=== PATIENT | female | born 1975 | race Caucasian/White ===

== ENCOUNTER 2017-09-11 13:22 | Emergency (ER) | payer OTHER ==
[~2017-09-11 13:22] MED LIST: Sodium Chloride 0.9% 100 ML BAG ONE
[2017-09-11 13:47] LABS: INR-International Normal Ratio 1.1; Prothrombin Time 14.8 SEC (12.0-14.7)
[2017-09-11 13:54] LABS: Bilirubin Negative (Negative); Blood, Urine Large (Negative); Clarity Hazy (Clear); Glucose, Urine (Dipstick) Negative (Negative); Leukocyte Negative (Negative); Nitrite Negative (Negative); Protein, Urine (Dipstick) 30 mg/dL (Neg-Trace); Urobilinogen 0.2 mg/dL (0.2-1.0)
[2017-09-11 13:58] LABS: ALT (SGPT) 16 U/L (8-55); AST (SGOT) 26 U/L (5-34); Albumin 3.1 g/dL (3.5-5.0); Anion Gap 16 mmol/L (10-20); BUN (Urea Nitrogen) 11 mg/dL (7.0-18.7); Bilirubin, Total 0.3 mg/dL (0.2-1.2); Calc. Creatinine Clearance 0 mL/min (70-130); Calcium 9.7 mg/dL (7.8-10.44); Carbon Dioxide 22 mmol/L (22-29); Chloride 97 mmol/L (98-107); Estimated GFR-MDRD Greater than 90; Globulin 4.9 g/dL (2.4-3.5); Glucose 91 mg/dL (70-105); Potassium 3.8 mmol/L (3.5-5.1); Sodium 131 mmol/L (136-145)
[2017-09-11 13:59] LABS: Band 2 % (5-11); Hemoglobin 9.6 g/dL (12.0-16.0); Lymphocytes 20 % (21-51); MDiff Complete? YES; Mean Corpuscular HGB CONC 33.5 g/dL (32.0-36.0); Mean Corpuscular Hemoglobin 28.4 pg (27.0-31.0); Mean Corpuscular Volume 84.9 fl (81.0-99.0); Mean Platelet Volume 11.4 fL (7.4-10.4); Monocytes 9 % (0-10); Neutrophil 69 % (42-75); PLT Morphology Comment Appears Adequate; Platelet Count 138 thou/uL (130-400); RBC Distribution Width 12.6 % (11.5-14.5); Red Blood Cell (RBC) Count 3.37 mill/uL (4.20-5.40); White Blood Cell (WBC) Count 4.6 thou/uL (4.8-10.8)
[2017-09-11 13:59] LABS: Bacteria/HPF 1+ HPF (None Seen); RBC/HPF 21-50 HPF (0-3); Squamous Epithelial 0-3 HPF (0-3); WBC/HPF 0-3 HPF (0-3)
--- NOTE | 2017-09-11 14:00 | RAD ---
FRONTAL VIEW CHEST: Date: 09/11/17 No prior comparison. CLINICAL HISTORY: Fever. FINDINGS: There is no consolidation, effusion, or pneumothorax. Cardiac silhouette is within normal limits of s ize. IMPRESSION: No focal consolidation. Hyperinflated lungs. POS: [facility]
[2017-09-11 14:05] LABS: Alkaline Phosphatase 65 U/L (40-150)
[2017-09-11] MEDS ORDERED: cefTRIAXone\\ROCEPHIN 1 GM VIAL ONE (14:26)
[2017-09-11] MEDS ORDERED: Oseltamivir 6 MG/ML ORAL SUSP ONE (14:26)
== END 2017-09-11 16:03 ==
LOC: MADERS 13:22
DX: J11.1 Influenza due to unidentified influenza virus with other respiratory manifestations (principal); D64.9 Anemia, unspecified; K21.9 Gastro-esophageal reflux disease without esophagitis; K50.90 Crohn's disease, unspecified, without complications; I10 Essential (primary) hypertension; Z79.899 Other long term (current) drug therapy
CPT/HCPCS: 36415; 51701; 71045; 80053; 81003; 81015; 83605; 85025; 85610; 85730; 87040; 94760; 96365; A4353; J0696; J7050

== ENCOUNTER 2024-05-07 10:12 | Emergency (ER) | payer MEDICARE, OTHER, SELFPAY ==
[2024-05-07] MEDS ORDERED: Glucagon 1 MG/ML KIT ONE (10:25)
[2024-05-07] MEDS ORDERED: Pantoprazole 40 MG VIAL ONE (11:32)
== END 2024-05-07 11:48 | disposition home or self-care (01) ==
LOC: MADERS 10:12
DX: T18.128A Food in esophagus causing other injury, initial encounter (principal); Z87.891 Personal history of nicotine dependence
CPT/HCPCS: 94760; 96374; 96375; J1611; J2470